=== PATIENT | female | born 1985 | race Caucasian/White ===

== ENCOUNTER → 2018-08-20 12:53 | Emergency (ER) | payer BC ==
[~2018-08-20 12:53] MED LIST: Ketorolac INJ* 60 MG/2 ML VIAL IM ONE
--- NOTE | 2018-08-20 15:14 | ED ---
Throat Pain/Nasal Congestion - HPI Summary HPI Summary: Patient is a 32-year-old female with a history of dental abscesses, gingivitis, several crowns, pulled teeth and root canals presenting to the ED with a complaint of dental abscess to the left lower and right upper teeth, specifically over #20 and #4. She is here visiting and states she is unable to see a dentist at this time. Radiation of pain into the ears, but no radiation of pain to the neck. Denies any fevers, sweats, chills. Patient states she has a history of bronchitis. Patient is a smoker. She has tried Ambesol without relief. - History of Current Complaint Chief Complaint: EDDentalPain Time Seen by Provider: 08/20/18 14:45 Hx Obtained From: Patient Onset/Duration: Sudden Onset Severity: Moderate Associated Signs And Symptoms: Positive: Negative - Epiglottits Risk Factors Epiglottis Risk Factors: Negative - Allergies/Home Medications Allergies/Adverse Reactions: Allergies Allergy/AdvReac Type Severity Reaction Status Date / Time vancomycin Allergy Hives Verified 08/20/18 13:13 Home Medications: Home Medications Prozac 08/20/18 [History] PMH/Surg Hx/FS Hx/Imm Hx Previously Healthy: Yes - Immunization History Hx Pertussis Vaccination: No Immunizations Up to Date: Yes Infectious Disease History: No Infectious Disease History: Denies: Traveled Outside the [place] in Last 30 Days - Social History Occupation: Unemployed Lives: Alone Alcohol Use: None Hx Substance Use: No Substance Use Type: Reports: None Hx Tobacco Use: Yes Smoking Status (MU): Current Every Day Smoker Review of Systems Constitutional: Negative Negative: Fever, Chills, Fatigue, Skin Diaphoresis Positive: Dental Pain - dental caries throughout Negative: Palpitations, Chest Pain Negative: Shortness Of Breath, Cough Genitourinary: Negative Positive: no symptoms reported, see HPI Negative: Arthralgia, Myalgia Neurological: Negative All Other Systems Reviewed And Are Negative: Yes Physical Exam Triage Information Reviewed: Yes Vital Signs On Initial Exam: Initial Vitals Temp Pulse Resp BP Pulse Ox 97.7 F 71 18 117/87 100 08/20/18 13:07 08/20/18 13:07 08/20/18 13:07 08/20/18 13:07 08/20/18 13:07 Vital Signs Reviewed: Yes Appearance: Positive: Well-Appearing, Well-Nourished Skin: Positive: Warm, Skin Color Reflects Adequate Perfusion Head/Face: Positive: Normal Head/Face Inspection Eyes: Positive: EOMI, Conjunctiva Clear Dental: Positive: Percussion Tenderness @ - throughout, Gross Decay/Caries @ - throughout, Dental Fracture @ - throughout, Abscess @ - no obvious abscess - erythema all over - worse to #20 and #4 Neck: Positive: Supple, No Lymphadenopathy Cardiovascular: Positive: RRR, Pulses are Symmetrical in both Upper and Lower Extremities Musculoskeletal: Positive: Normal, Strength/ROM Intact Neurological: Positive: Sensory/Motor Intact, Alert, Oriented to Person Place, Time, Speech Normal Psychiatric: Positive: Affect/Mood Appropriate AVPU Assessment: Alert Diagnostics - Vital Signs Vital Signs Temp Pulse Resp BP Pulse Ox 08/20/18 13:07 97.7 F 71 18 117/87 100 - Laboratory Lab Statement: Any lab studies that have been ordered have been reviewed, and results considered in the medical decision making process. EENT Course/Dx - Course Course Of Treatment: During this patient's course of treatment, she is evaluated for abscessed tooth to #20 and #4. She has broken teeth throughout, dental caries, root canals and erythema throughout resembling gingivitis. No evidence of abscess. Patient is given Toradol in the ED. She is prescribed amoxicillin as well as Toradol for relief. She'll continue to take Tylenol but no NSAIDs. Patient understands these care instructions. - Diagnoses Provider Diagnoses: Gingivitis, Dental abscess, Dental caries Discharge - Sign-Out/Discharge Documenting (check all that apply): Patient Departure Patient Received Moderate/Deep Sedation with Procedure: No - Discharge Plan Condition: Stable Disposition: HOME Prescriptions: Amoxicillin PO (*) [Amoxicillin 500 MG CAP*] 500 mg PO TID #21 cap Ketorolac TAB * [Toradol TAB *] 10 mg PO Q6H #16 tab Penicillin VK 500 MG TAB(NF) [Penicillin VK 500 mg Tab(NF)] 500 mg PO TID #21 tab MDD 3 Patient Education Materials: Dental Abscess (ED) Referrals: No Primary Care Phys,NOPCP [Primary Care Provider] - Additional Instructions: Clove oil and Ambesol as needed for discomfort Penicillin 3 times daily 7 days Toradol 4 times daily, do not use ibuprofen while taking this medication You may take Tylenol 650 mg 3 times daily on the opposite schedule of the Toradol - Billing Disposition and Condition Condition: STABLE Disposition: Home
[2018-08-20 16:09] VITALS: BP 119/68
== END | disposition home or self-care (01) ==
LOC: ED 12:53
DX: K04.7 Periapical abscess without sinus (principal); K05.10 Chronic gingivitis, plaque induced; K02.9 Dental caries, unspecified; Z88.1 Allergy status to other antibiotic agents; F17.200 Nicotine dependence, unspecified, uncomplicated
CPT/HCPCS: 96372; 99282; J1885